=== PATIENT | female | born 1995 | race Caucasian/White ===

== ENCOUNTER 2016-08-10 15:13 | Emergency (ER) | payer MEDICAID, SELFPAY ==
[2016-08-10] MEDS ORDERED: Bacitracin Zinc 1 Packet ONE (15:40)
== END 2016-08-10 15:45 | disposition home or self-care (01) ==
LOC: BURERS 15:13
DX: L02.511 Cutaneous abscess of right hand (principal); F17.210 Nicotine dependence, cigarettes, uncomplicated
CPT/HCPCS: 26010

== ENCOUNTER 2018-06-22 17:41 | Emergency (ER) | payer SELFPAY ==
[2018-06-22] MEDS ORDERED: Bacitracin Zinc 1 Packet ONE (17:58)
[2018-06-22] MEDS ORDERED: Amoxicillin/Potassium Clav 875 MG TAB ONE (18:07)
== END 2018-06-22 18:10 | disposition home or self-care (01) ==
LOC: BURERS 17:41
DX: S01.05XA Open bite of scalp, initial encounter (principal); F17.210 Nicotine dependence, cigarettes, uncomplicated; W54.0XXA Bitten by dog, initial encounter
CPT/HCPCS: 99283

== ENCOUNTER 2020-05-07 19:05 | Emergency (ER) | payer OTHER, SELFPAY ==
[2020-05-07] MEDS ORDERED: Boostrix 0.5 ML (Tdap) VIAL ONE (19:51)
[2020-05-07] MEDS ORDERED: Oseltamivir 6 MG/ML ORAL SUSP ONE (19:51)
== END 2020-05-07 19:55 | disposition home or self-care (01) ==
LOC: BURERS 19:05
DX: S01.01XA Laceration without foreign body of scalp, initial encounter (principal); J45.909 Unspecified asthma, uncomplicated; F17.210 Nicotine dependence, cigarettes, uncomplicated; W22.8XXA Striking against or struck by other objects, initial encounter
CPT/HCPCS: 90471; 90715